=== PATIENT | female | born 1975 | race American Indian/Alaskan Native ===

== ENCOUNTER 2020-03-31 00:18 | Emergency (ER) | payer BC, MEDICAID ==
[2020-03-31] MEDS ORDERED: Sodium Chloride 0.9% 1,000 ML IV ONE (00:40)
[2020-03-31] MEDS ORDERED: Ketorolac 30 MG/ML SDV IVPUSH ONE (01:56)
[2020-03-31 01:59] LABS: ANION GAP 12.7 mEq/L (7-13)
--- NOTE | 2020-03-31 02:19 | EDM.PDOC ---
ED HPI GENERAL MEDICAL PROBLEM - General Chief Complaint: Flank Pain Stated Complaint: PAIN IN LOWER BACK Time Seen by Provider: 03/31/20 00:45 Source of Information: Reports: Patient History Limitations: Reports: No Limitations - History of Present Illness INITIAL COMMENTS - FREE TEXT/NARRATIVE: ED with c/o right lower back pain. Reports chronic back pain, usually improves with ibuprofen, took 2 advil this am and didn't help. no fever or chill. No difficulty or pain with urination. Denies injury, No change in activity no radiation of pain. Right Flank Pain Score (Numeric/FACES): 6 - Related Data Allergies Allergy/AdvReac Type Severity Reaction Status Date / Time No Known Allergies Allergy Verified 03/31/20 00:28 Home Meds: Home Meds . [No Known Home Meds] 02/28/14 [History] Past Medical History - Past Health History Medical/Surgical History: Denies Medical/Surgical History Social & Family History - Tobacco Use Smoking Status *Q: Current Every Day Smoker Years of Tobacco use: 6 Packs/Tins Daily: 0.2 Second Hand Smoke Exposure: Yes - Recreational Drug Use Recreational Drug Use: No ED ROS GENERAL - Review of Systems Review Of Systems: Comprehensive ROS is negative, except as noted in HPI. ED EXAM,LOWER BACK PAIN/INJURY - Physical Exam Exam: See Below Exam Limited By: No Limitations General Appearance: Alert, No Apparent Distress Eye Exam: Bilateral Eye: EOMI Ears: Normal External Exam Nose: Normal Inspection Throat/Mouth: Normal Inspection Head: Atraumatic, Normocephalic Neck: Normal Inspection Respiratory/Chest: No Respiratory Distress, Lungs Clear Cardiovascular: Normal Peripheral Pulses, Bradycardia GI/Abdominal: Normal Bowel Sounds, Non-Tender Back Exam: Full Range of Motion, Paraspinal Tenderness (mild right lower). No: CVA Tenderness (L), CVA Tenderness (R), Muscle Spasm Neurological: Alert, Normal Plantar Flexion, Normal Gait, Normal Reflexes, Oriented x 3. No: Straight Leg Raise (L), Straight Leg Raise (R) Psychiatric: Flat Affect Skin Exam: Warm, Dry, Intact, Normal Color Course - Vital Signs Last Recorded V/S: Last Vital Signs Temp 97.4 F 03/31/20 00:24 Pulse 84 03/31/20 00:24 Resp 18 03/31/20 00:24 BP 96/69 03/31/20 00:24 Pulse Ox 100 03/31/20 00:24 - Orders/Labs/Meds Orders: Active Orders 24 hr Category Date Time Status CULTURE URINE [RM] Stat Lab 03/31/20 00:16 Received Labs: Laboratory Tests 03/31/20 03/31/20 03/31/20 Range/Units 00:16 00:16 00:16 WBC (5.0-10.0) 10^3/uL RBC (4.2-5.4) 10^6/uL Hgb (12.0-16.0) g/dL Hct (37.0-47.0) % MCV (80-100) fL MCH (27.0-34.0) pg MCHC (33.0-35.0) g/dL Plt Count (150-450) 10^3/uL Neut % (Auto) (42.2-75.2) % Lymph % (Auto) (20.5-50.1) % Travis % (Auto) (2-8) % Eos % (Auto) (1.0-3.0) % Baso % (Auto) (0.0-1.0) % Sodium (136-145) mmol/L Potassium (3.5-5.1) mmol/L Chloride (98-107) mmol/L Carbon Dioxide (21-32) mmol/L Anion Gap (7-13) mEq/L BUN (7-18) mg/dL Creatinine (0.55-1.02) mg/dL Est Cr Clr Drug Dosing mL/min Estimated GFR (MDRD) BUN/Creatinine Ratio (No establ ref range) Glucose (74-99) mg/dL Calcium (8.5-10.1) mg/dL Total Bilirubin (0.2-1.0) mg/dL AST (15-37) U/L ALT (14-59) U/L Alkaline Phosphatase (46-116) U/L Total Protein (6.4-8.2) g/dL Albumin (3.4-5.0) g/dL Globulin Albumin/Globulin Ratio Urine Color Yellow (YELLOW) Urine Appearance Slightly cloudy (CLEAR) Urine pH 7.0 (5.0-9.0) Ur Specific [place]ument 1.020 (1.005-1.030) Urine Protein Negative (NEGATIVE) Urine Glucose (UA) Negative (NEGATIVE) Urine Ketones Negative (NEGATIVE) Urine Occult Blood Trace-intact H (NEGATIVE) Urine Nitrite Negative (NEGATIVE) Urine Bilirubin Negative (NEGATIVE) Urine Urobilinogen 0.2 (0.2-1.0) mg/dL Ur Leukocyte Esterase Trace H (NEGATIVE) Urine RBC Not seen /HPF Urine WBC 0-5 (0-5/HPF) /HPF Ur Epithelial Cells Moderate H (NOT SEEN) /HPF Urine Bacteria Moderate H (0-FEW/HPF) /HPF Urine Other See note Urine HCG, Qual Negative Urine Opiates Screen Negative (NEGATIVE) Ur Oxycodone Screen Negative (NEGATIVE) Urine Methadone Screen Negative (NEGATIVE) Ur Barbiturates Screen Negative (NEGATIVE) U Tricyclic Antidepress Negative (NEGATIVE) Ur Phencyclidine Scrn Negative (NEGATIVE) Ur Amphetamine Screen Negative (NEGATIVE) U Methamphetamines Scrn Negative (NEGATIVE) Urine MDMA Screen Negative (NEGATIVE) U Benzodiazepines Scrn Negative (NEGATIVE) Urine Cocaine Screen Negative (NEGATIVE) U Marijuana (THC) Screen Negative (NEGATIVE) 03/31/20 03/31/20 Range/Units 00:50 00:50 WBC 7.7 (5.0-10.0) 10^3/uL RBC 4.77 (4.2-5.4) 10^6/uL Hgb 11.8 L (12.0-16.0) g/dL Hct 37.2 (37.0-47.0) % MCV 78.0 L (80-100) fL MCH 24.7 L (27.0-34.0) pg MCHC 31.7 L (33.0-35.0) g/dL Plt Count 372 (150-450) 10^3/uL Neut % (Auto) 43.6 (42.2-75.2) % Lymph % (Auto) 43.2 (20.5-50.1) % Travis % (Auto) 7.0 (2-8) % Eos % (Auto) 5.6 H (1.0-3.0) % Baso % (Auto) 0.6 (0.0-1.0) % Sodium 138 (136-145) mmol/L Potassium 3.7 (3.5-5.1) mmol/L Chloride 104 (98-107) mmol/L Carbon Dioxide 25 (21-32) mmol/L Anion Gap 12.7 (7-13) mEq/L BUN 10 (7-18) mg/dL Creatinine 1.04 H (0.55-1.02) mg/dL Est Cr Clr Drug Dosing 67.13 mL/min Estimated GFR (MDRD) 58 BUN/Creatinine Ratio 9.6 (No establ ref range) Glucose 101 H (74-99) mg/dL Calcium 8.4 L (8.5-10.1) mg/dL Total Bilirubin 0.2 (0.2-1.0) mg/dL AST 15 (15-37) U/L ALT 22 (14-59) U/L Alkaline Phosphatase 87 (46-116) U/L Total Protein 7.2 (6.4-8.2) g/dL Albumin 3.6 (3.4-5.0) g/dL Globulin 3.6 Albumin/Globulin Ratio 1.0 Urine Color (YELLOW) Urine Appearance (CLEAR) Urine pH (5.0-9.0) Ur Specific Monument (1.005-1.030) Urine Protein (NEGATIVE) Urine Glucose (UA) (NEGATIVE) Urine Ketones (NEGATIVE) Urine Occult Blood (NEGATIVE) Urine Nitrite (NEGATIVE) Urine Bilirubin (NEGATIVE) Urine Urobilinogen (0.2-1.0) mg/dL Ur Leukocyte Esterase (NEGATIVE) Urine RBC /HPF Urine WBC (0-5/HPF) /HPF Ur Epithelial Cells (NOT SEEN) /HPF Urine Bacteria (0-FEW/HPF) /HPF Urine Other Urine HCG, Qual Urine Opiates Screen (NEGATIVE) Ur Oxycodone Screen (NEGATIVE) Urine Methadone Screen (NEGATIVE) Ur Barbiturates Screen (NEGATIVE) U Tricyclic Antidepress (NEGATIVE) Ur Phencyclidine Scrn (NEGATIVE) Ur Amphetamine Screen (NEGATIVE) U Methamphetamines Scrn (NEGATIVE) Urine MDMA Screen (NEGATIVE) U Benzodiazepines Scrn (NEGATIVE) Urine Cocaine Screen (NEGATIVE) U Marijuana (THC) Screen (NEGATIVE) Meds: Medications Discontinued Medications Generic Name Dose Route Start Last Admin Trade Name Freq PRN Reason Stop Dose Admin Sodium Chloride 1,000 mls @ 999 mls/hr 03/31/20 00:40 03/31/20 00:51 Normal Saline IV 03/31/20 01:40 999 mls/hr .BOLUS ONE Administration Ketorolac Tromethamine 30 mg 03/31/20 01:56 03/31/20 02:01 Toradol IVPUSH 03/31/20 01:57 30 mg ONETIME ONE Administration - Re-Assessments/Exams Free Text/Narrative Re-Assessment/Exam: 03/31/20 04:14 Reports improved after Toradol. Departure - Departure Time of Disposition: 02:16 Disposition: Home, Self-Care 01 Condition: Good Clinical Impression: Low back pain Qualifiers: Chronicity: chronic Back pain laterality: right Sciatica presence: without sciatica Qualified Code(s): M54.5 - Low back pain - Discharge Information *PRESCRIPTION DRUG MONITORING PROGRAM REVIEWED*: No *COPY OF PRESCRIPTION DRUG MONITORING REPORT IN PATIENT ALKA: No Instructions: Back Exercises, [id number] Forms: ED Department Discharge Additional Instructions: alternate tylenol 650mg and ibuprofen 600mg every 4 hours as needed for discomfort warm pack to low back clinic follow up as needed Sepsis Event Note (ED) - Evaluation Sepsis Screening Result: No Definite Risk - Focused Exam Vital Signs: Vital Signs Temp Pulse Resp BP Pulse Ox 03/31/20 00:24 97.4 F 84 18 96/69 100 - My Orders Last 24 Hours: My Active Orders 03/31/20 00:16 CULTURE URINE [RM] Stat - Assessment/Plan Last 24 Hours: My Active Orders 03/31/20 00:16 CULTURE URINE [RM] Stat
== END 2020-03-31 02:26 | disposition home or self-care (01) ==
LOC: DL.ED 00:18
DX: M54.5 Low back pain (principal); F17.210 Nicotine dependence, cigarettes, uncomplicated
CPT/HCPCS: 36415; 80053; 80305; 81001; 81025; 85025; 87086; 87088; 87186; 96374; 99283; J1885; J7030

== ENCOUNTER 2022-10-17 19:19 | Emergency (ER) | payer BC, MEDICAID ==
[2022-10-17] MEDS ORDERED: Ketorolac 30 MG/ML SDV IM ONE (19:37)
== END 2022-10-17 20:30 | disposition home or self-care (01) ==
LOC: DL.ED 19:19
DX: M25.561 Pain in right knee (principal); M25.562 Pain in left knee
CPT/HCPCS: 73560; 96372; 99283; J1885; 99282

== ENCOUNTER 2022-12-28 07:09 | Day surgery (SDC) | payer BC, MEDICAID ==
[~2022-12-28 07:09] MED LIST: Dextrose 5%-0.45% NaCl 1,000 ML IV SCH; Midazolam 1 MG/ML 2 ML SDV ONE; Sodium Chloride 0.9% 10 ML Syringe FLUSH PRN; Sodium Chloride 0.9% 10 ML Syringe FLUSH SCH; fentaNYL 100 MCG/2 ML SDV ONE
[2022-12-28] MEDS ORDERED: fentaNYL 100 MCG/2 ML SDV IV ONE ×3 (07:10→08:36)
[2022-12-28] MEDS ORDERED: Midazolam 1 MG/ML 2 ML SDV IV ONE ×3 (07:10→08:37)
== END 2022-12-28 10:45 | disposition home or self-care (01) ==
LOC: DL.ENDO 07:09
PROVIDERS: ATTEND Internal Medicine Gastroenterology
DX: K29.50 Unspecified chronic gastritis without bleeding (principal); K21.9 Gastro-esophageal reflux disease without esophagitis; D50.0 Iron deficiency anemia secondary to blood loss (chronic); J30.2 Other seasonal allergic rhinitis; Z87.410 Personal history of cervical dysplasia; Z87.891 Personal history of nicotine dependence; Z98.51 Tubal ligation status
CPT/HCPCS: 43239; 87077; J2250; J3010; J7042

== ENCOUNTER 2023-01-01 06:55 | Day surgery (SDC) | payer MEDICAID ==
[2023-01-01] MEDS ORDERED: Midazolam 1 MG/ML 2 ML SDV IV ONE ×6 (07:45→07:50)
[2023-01-01] MEDS ORDERED: fentaNYL 100 MCG/2 ML SDV IV ONE ×5 (07:45→07:54)
== END 2023-01-01 09:39 | disposition home or self-care (01) ==
LOC: DL.ENDO 06:55
PROVIDERS: ATTEND Internal Medicine Gastroenterology
DX: D12.3 Benign neoplasm of transverse colon (principal); D50.9 Iron deficiency anemia, unspecified; E73.9 Lactose intolerance, unspecified; Z98.51 Tubal ligation status
CPT/HCPCS: J2250; J3010; J7042

== ENCOUNTER 2023-11-12 05:59 | Day surgery (SDC) | payer MEDICAID, OTHER ==
[2023-11-12] MEDS ORDERED: Midazolam 1 MG/ML 2 ML SDV ONE (06:05)
[2023-11-12] MEDS ORDERED: fentaNYL 100 MCG/2 ML SDV ONE (06:06)
[2023-11-12] MEDS: Dextrose 5%-0.45% NaCl 1,000 ML IV SCH (06:22)
[2023-11-12] MEDS: fentaNYL 100 MCG/2 ML SDV IV ONE ×2 (06:46)
[2023-11-12] MEDS: Midazolam 1 MG/ML 2 ML SDV IV ONE ×6 (06:47→06:51)
== END 2023-11-12 09:10 | disposition home or self-care (01) ==
LOC: DL.ENDO 05:59
PROVIDERS: ATTEND Internal Medicine Gastroenterology
DX: D12.3 Benign neoplasm of transverse colon (principal); K21.9 Gastro-esophageal reflux disease without esophagitis; K63.5 Polyp of colon
CPT/HCPCS: 45385; J2250; J3010; J7042